=== PATIENT | female | born 1980 | race African-American/Black ===

== ENCOUNTER 2018-09-03 12:35 | Inpatient (IN) | payer OTHER ==
[2018-09-03] MEDS ORDERED: MISOPROSTOL 200 MCG TAB PR ×2 (13:00→17:00)
[2018-09-03] MEDS ORDERED: METHYLERGONOVINE 0.2 MG INJ IM ×2 (13:00→17:00)
[2018-09-03] MEDS ORDERED: OXYTOCIN 30 UNITS/LR 500 ML IV ×4 (13:00→17:00)
[2018-09-03] MEDS ORDERED: CARBOPROST 250 MCG INJ IM ×2 (13:00→17:00)
[2018-09-03 13:08] LABS: ADD MAN DIFF? NO
[2018-09-03 13:10] LABS: WHITE BLOOD COUNT 8.1 10^3/ul (4.8-10.8)
[2018-09-03 13:10] LABS: BASOPHILS % 0.4 % (0.0-2.0); EOSINOPHILS # 0.1 10^3/ul (0.0-0.5); EOSINOPHILS % 0.9 % (0.0-7.0); HEMATOCRIT 35.2 % (37.0-47.0); HEMOGLOBIN 11.3 g/dl (12.0-16.0); LYMPHOCYTES # 1.4 10^3/ul (0.8-2.9); MEAN CORPUSCULAR HEMOGLOBIN 27.8 pg (29.0-33.0); MEAN CORPUSCULAR HGB CONC 32.1 g/dl (32.0-37.0); MEAN CORPUSCULAR VOLUME 86.5 fl (82.0-101.0); MEAN PLATELET VOLUME 11.2 fl (7.4-10.4); MONOCYTE # 0.6 10^3/ul (0.3-0.9); MONOCYTES % 7.4 % (0.0-11.0); NEUTROPHILS % 73.7 % (39.0-77.0); PLATELET COUNT 191 10^3/UL (140-415); RED BLOOD COUNT 4.07 10^6/ul (4.20-5.40); RED CELL DISTRIBUTION WIDTH 16.2 % (11.5-14.5)
[2018-09-03] MEDS: LACTATED RINGER'S 1,000 ML IV ×3 (13:25→20:53)
[2018-09-03 13:30] LABS: INR 0.89; PROTIME 12.1 Sec (11.9-14.9); PT RATIO 0.9
[2018-09-03 13:31] LABS: PARTIAL THROMBOPLASTIN TIME 27.5 Sec (23.0-35.0)
[2018-09-03 14:00] LABS: HEPATITIS B SURFACE ANTIGEN NEGATIVE (NEGATIVE)
[2018-09-03] MEDS: CITRIC ACID/NA CITRATE 30 ML CUP PO ×2 (14:00→15:20)
[2018-09-03] MEDS ORDERED: ONDANSETRON 4 MG INJ (15:37)
[2018-09-03] MEDS ORDERED: morphine SULFATE/PF (10 MG/10 ML) INJ (15:37)
[2018-09-03] MEDS ORDERED: METOCLOPRAMIDE 10 MG INJ (15:37)
[2018-09-03] MEDS ORDERED: KETOROLAC 30 MG INJ (15:38)
[2018-09-03 15:41] LABS: RAPID PLASMA REAGIN NONREACTIVE (NR)
[2018-09-03] MEDS ORDERED: CEFAZOLIN 1 GM INJ (15:46)
[2018-09-03] MEDS ORDERED: EPHEDrine 25 MG/5 ML SYG (15:52)
[2018-09-03] MEDS ORDERED: LANOLIN HPA 1 PKT TOP (17:00)
[2018-09-03] MEDS ORDERED: METHYLERGONOVINE 0.2 MG TAB PO (17:00)
[2018-09-03] MEDS: CEFAZOLIN 2 GM/50 ML (PMX) 50 ML IVPB (17:17)
[2018-09-03] MEDS ORDERED: ONDANSETRON 4 MG INJ IV ×2 (18:30)
[2018-09-03] MEDS ORDERED: DIPHENHYDRAMINE 50 MG INJ IV ×2 (18:30)
[2018-09-03] MEDS ORDERED: morphine 2 MG INJ IV ×3 (18:30)
[2018-09-03] MEDS ORDERED: morphine (1 MG/ML) 10ML SYRINGE IV ×3 (18:30)
[2018-09-03] MEDS ORDERED: NALOXONE (0.4 MG/ML) INJ IV (18:30)
[2018-09-03] MEDS: KETOROLAC 30 MG INJ IV (18:58)
[2018-09-03] MEDS: OXYTOCIN 30 UNITS/LR 500 ML IV ×2 (19:03→22:50)
[2018-09-03] MEDS: SENNA/DOCUSATE NA (8.6MG/50MG) TAB PO (21:31)
[2018-09-04] MEDS: LACTATED RINGER'S 1,000 ML IV ×3 (04:53→20:53)
[2018-09-04] MEDS: CEFAZOLIN 2 GM/50 ML (PMX) 50 ML IVPB ×3 (05:15→05:16)
[2018-09-04 08:28] LABS: ADD MAN DIFF? NO
[2018-09-04 08:36] LABS: BASOPHILS % 0.1 % (0.0-2.0); EOSINOPHILS % 0.3 % (0.0-7.0); HEMATOCRIT 28.7 % (37.0-47.0); HEMOGLOBIN 9.2 g/dl (12.0-16.0); LYMPHOCYTES # 0.8 10^3/ul (0.8-2.9); LYMPHOCYTES % 7.9 % (15.0-51.0); MEAN CORPUSCULAR HEMOGLOBIN 27.5 pg (29.0-33.0); MEAN CORPUSCULAR HGB CONC 32.1 g/dl (32.0-37.0); MEAN CORPUSCULAR VOLUME 85.7 fl (82.0-101.0); MEAN PLATELET VOLUME 11.1 fl (7.4-10.4); MONOCYTE # 0.8 10^3/ul (0.3-0.9); MONOCYTES % 7.4 % (0.0-11.0); NEUTROPHIL # 8.7 10^3/ul (1.6-7.5); NEUTROPHILS % 83.9 % (39.0-77.0); PLATELET COUNT 154 10^3/UL (140-415); RED BLOOD COUNT 3.35 10^6/ul (4.20-5.40); RED CELL DISTRIBUTION WIDTH 16.3 % (11.5-14.5)
[2018-09-04 08:36] LABS: WHITE BLOOD COUNT 10.4 10^3/ul (4.8-10.8)
[2018-09-04 09:10] LABS: ANION GAP 7 (5-13); BLOOD UREA NITROGEN 13 mg/dl (7-20); CALCIUM 8.9 mg/dl (8.4-10.2); CARBON DIOXIDE 23 mmol/L (21-31); CHLORIDE 107 mmol/L (97-110); CREATININE 0.61 mg/dl (0.44-1.00); Estimated GFR > 60 mL/min (>60); GLUCOSE 89 mg/dl (70-220); POTASSIUM 4.2 mmol/L (3.5-5.1); SODIUM 137 mmol/L (135-144)
[2018-09-04] MEDS: SENNA/DOCUSATE NA (8.6MG/50MG) TAB PO ×2 (10:27→23:08)
[2018-09-04] MEDS: KETOROLAC 30 MG INJ IV ×2 (10:28→15:40)
[2018-09-04] MEDS: IBUPROFEN 800 MG TAB PO (23:08)
[2018-09-04] MEDS: HYDROCODONE/APAP (5/325) TAB PO (23:46)
[2018-09-05] MEDS: LACTATED RINGER'S 1,000 ML IV (04:53)
[2018-09-05] MEDS: IBUPROFEN 800 MG TAB PO ×3 (05:58→22:44)
[2018-09-05] MEDS: SENNA/DOCUSATE NA (8.6MG/50MG) TAB PO ×2 (09:00→22:44)
[2018-09-05] MEDS: HYDROCODONE/APAP (5/325) TAB PO (19:02)
[2018-09-06] MEDS: LACTATED RINGER'S 1,000 ML IV (04:08)
[2018-09-06] MEDS: IBUPROFEN 800 MG TAB PO (05:56)
[2018-09-06 08:29] LABS: ADD MAN DIFF? NO
[2018-09-06 08:35] LABS: BASOPHILS % 0.4 % (0.0-2.0); EOSINOPHILS # 0.2 10^3/ul (0.0-0.5); EOSINOPHILS % 2.2 % (0.0-7.0); HEMATOCRIT 26.9 % (37.0-47.0); HEMOGLOBIN 8.4 g/dl (12.0-16.0); LYMPHOCYTES # 1.3 10^3/ul (0.8-2.9); LYMPHOCYTES % 17.9 % (15.0-51.0); MEAN CORPUSCULAR HEMOGLOBIN 27.5 pg (29.0-33.0); MEAN CORPUSCULAR HGB CONC 31.2 g/dl (32.0-37.0); MEAN CORPUSCULAR VOLUME 87.9 fl (82.0-101.0); MEAN PLATELET VOLUME 11.3 fl (7.4-10.4); MONOCYTE # 0.5 10^3/ul (0.3-0.9); MONOCYTES % 7.4 % (0.0-11.0); NEUTROPHIL # 5.1 10^3/ul (1.6-7.5); NEUTROPHILS % 71.4 % (39.0-77.0); PLATELET COUNT 180 10^3/UL (140-415); RED BLOOD COUNT 3.06 10^6/ul (4.20-5.40); RED CELL DISTRIBUTION WIDTH 16.9 % (11.5-14.5)
[2018-09-06 08:35] LABS: WHITE BLOOD COUNT 7.2 10^3/ul (4.8-10.8)
[2018-09-06] MEDS: MEASLES,MUMPS,RUBELLA VACCINE INJ SC* (08:54)
[2018-09-06] MEDS: SENNA/DOCUSATE NA (8.6MG/50MG) TAB PO (09:13)
[2018-09-06] MEDS: DIPHTH/TET/ACEL PERTUSS (ADULT) 0.5 ML VIAL IM* (09:14)
== END 2018-09-06 13:52 | disposition home or self-care (01) | DRG 788 ==
LOC: L-D 12:35 → PP1 19:28
PROVIDERS: Obstetrics & Gynecology
PROC: 10D00Z1 Extraction of Products of Conception, Low, Open Approach (ICD-10-PCS; principal; 2018-09-03 15:30)
DX: O34.219 Maternal care for unspecified type scar from previous cesarean delivery (principal); O69.81X0 Labor and delivery complicated by cord around neck, without compression, not applicable or unspecified; G89.18 Other acute postprocedural pain; O99.02 Anemia complicating childbirth; D50.9 Iron deficiency anemia, unspecified; O99.214 Obesity complicating childbirth; E66.01 Morbid (severe) obesity due to excess calories; Z37.0 Single live birth; Z3A.39 39 weeks gestation of pregnancy; Z23 Encounter for immunization
CPT/HCPCS: 80048; 85025; 85610; 85730; 86592; 86850; 86900; 86901; 87340; 90715; 99464